=== PATIENT | female | born 1945 | race Caucasian/White ===

== ENCOUNTER 2023-11-03 14:29 | Outpatient (AMB) | payer MEDICARE, SELFPAY ==
--- NOTE | 2023-11-03 14:30 | A.OFFVIS_ITS ---
Intake Vital Signs 11/03/23 14:32 Height 5 ft 5 in Weight 129 lb 6 oz BMI 21.5 BP 120/68 Blood Pressure Location Rt brachial Position Sitting Respiration 16 Pulse 89 Pulse Source Pulse Oximeter Pulse Oximetry (%) 96 Oxygen Delivery Method Room Air Intake Visit Reasons: Muscle cramps Intake Note: Pt presents to the office for new pt evaluation for muscle cramps of the LE x 2 years. 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 It started about 2 years ago she started noticing leg cramps usually after brisk walking for 5-10 minutes. she can usually still walk as the cramps - she calls it charlies horse in her calves are mild. But is usually resolves after a brief rest and starts again when she walks .In the past 2 years she feels she has improved . It used to be after 5 min of brisk walking but she can walk 10 min without symptoms. she has mild back discomfort bit no radicular symptoms No numbness tingling or burning pain. No urinary incontinence. she was seen vascular who ruled out claudication. [facility] Medical History (Updated 11/03/23 @ 15:06 by Evelina Cummings MD) Muscle cramps Mitral regurgitation Pulmonary embolism Atrial fibrillation Vasovagal syncope Radiation effect Breast cancer Lymph node cancer Surgical History (Updated 11/03/23 @ 14:39 by Angelica Art CMA) H/O total hysterectomy H/O mastectomy History of appendectomy Family History (Updated 11/03/23 @ 14:39 by Angelica Art CMA) Father No problems noted. Mother No problems noted. Social History (Updated 11/03/23 @ 14:40 by Angelica Art CMA) Household Members: Spouse Housing: House Alcohol intake: never Patient Tobacco Use Status: Never used Tobacco Use of substances other than those prescribed or required for medical reasons: No Physical Exam Vital Signs: Last Vital Signs Pulse 89 11/03/23 14:32 Resp 16 11/03/23 14:32 BP 120/68 11/03/23 14:32 Pulse Ox 96 11/03/23 14:32 Oxygen Delivery Method Room Air 11/03/23 14:32 BMI result Body Mass Index 21.5 Const General: cooperative, healthy appearing and comfortable Nutritional Appearance: average body habitus Orientation/consciousness: patient oriented x3 Eyes Pupils: Equal, round and reactive pupils present Neuro General: patient oriented x3, gait normal, tone normal, moves all extremities and no focal motor deficits Cranial nerves: Yes Facial sensation intact/muscles of mastication intact, Yes Equal, round and reactive pupils present, Yes Bilaterally intact EOM present, Yes Nystagmus not present, Yes Normal facial strength present, Yes Midline tongue present and Yes Symmetric palate elevation present Cognition (Neuro): normal cognition Gait exam (Neuro): Normal gait present Motor exam (neuro): 5/5 motor strength present throughout and Normal motor muscle tone present throughout Deep tendon reflexes (DTR's): Right triceps reflex intensity grade: 2+, Left triceps reflex intensity grade: 2+, Rt Biceps (C5, C6): 2+, Left biceps reflex intensity grade: 2+, Right brachioradialis reflex intensity grade: 2+, Left brachioradialis reflex intensity grade: 2+, Right patellar reflex intensity grade: 2+ and Left patellar reflex intensity grade: 2+ Coordination: [id number] test normal Assessment & Plan Assessment & Plan (1) Muscle cramps: Comment: with exercise - unlikely to be due to spinals stenosis . Code(s): R25.2 - Cramp and spasm (2) Muscle cramps: Comment: with exercise - unlikely to be due to spinals stenosis . Code(s): R25.2 - Cramp and spasm Plan I suggested trialling on magnesium oxide or glycinate 250-500mg qhs If she does not improve or worsens will consider MRI LS spine and PT. Patient is very active and plays golf but does not stretch I suggested to add some stretching after her activity . Wear good fitting shoes during activity. Coding Level of Care Code New Pt Level 4 (34941) Diagnoses Muscle cramps R25.2
[2023-11-03 14:32] VITALS: BP 120/68; PULSE 89; RESP 16; O2SAT 96; BMI 21.5
== END 2023-11-03 15:15 | disposition home or self-care (01) ==
PROVIDERS: PCP Internal Medicine Endocrinology, Diabetes & Metabolism; Visit Provider Psychiatry & Neurology Neurology
DX: R25.2 Cramp and spasm (principal)
CPT/HCPCS: 99204

== ENCOUNTER → 2023-11-03 14:29 | Outpatient (BNVA) | payer MEDICARE, SELFPAY | PROVIDERS: PCP Internal Medicine Endocrinology, Diabetes & Metabolism; Visit Provider Psychiatry & Neurology Neurology | DX: R25.2 Cramp and spasm (principal) | CPT/HCPCS: 99202 ==

== ENCOUNTER 2024-05-05 15:03 | Outpatient (AMB) | payer MEDICARE, SELFPAY ==
--- NOTE | 2024-05-05 15:22 | MHC.OFFVIS ---
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 Cut down on Magnesium because is giving me diarrhea. Should I get a blood test to see my magnesium levels? Allergies No Known Allergies Allergy (Verified 05/05/24 15:28) HPI Comments Details: 78y/o female comes for follow up of leg cramps .she is feeling better with magnesium on and off.she had diarrhea with higher doses of magnesium and currently she is on 125 mg qd. Past visit history- It started about 2 years ago she started noticing leg cramps usually after brisk walking for 5-10 minutes. she can usually still walk as the cramps - she calls it charlies horse in her calves are mild. But is usually resolves after a brief rest and starts again when she walks .In the past 2 years she feels she has improved . It used to be after 5 min of brisk walking but she can walk 10 min without symptoms. she has mild back discomfort bit no radicular symptoms No numbness tingling or burning pain. No urinary incontinence. she was seen vascular who ruled out claudication. [facility] Medical History (Updated 11/03/23 @ 15:06 by Evelina Cummings MD) Muscle cramps Mitral regurgitation Pulmonary embolism Atrial fibrillation Vasovagal syncope Radiation effect Breast cancer Lymph node cancer Surgical History H/O total hysterectomy H/O mastectomy History of appendectomy Family History Father No problems noted. Mother No problems noted. Social History Household Members: Spouse Housing: House Alcohol intake: never Patient Tobacco Use Status: Never used Tobacco Physical Exam Vital Signs: Last Vital Signs Pulse 71 05/05/24 15:31 Resp 16 05/05/24 15:31 BP 120/60 05/05/24 15:31 Pulse Ox 98 05/05/24 15:31 Oxygen Delivery Method Room Air 05/05/24 15:31 BMI result Body Mass Index 21.3 Const General: cooperative, healthy appearing and comfortable Nutritional Appearance: average body habitus Orientation/consciousness: patient oriented x3 Eyes Pupils: Equal, round and reactive pupils present Neuro General: patient oriented x3, gait normal, tone normal, moves all extremities and no focal motor deficits Cranial nerves: Yes Facial sensation intact/muscles of mastication intact, Yes Equal, round and reactive pupils present, Yes Bilaterally intact EOM present, Yes Nystagmus not present, Yes Normal facial strength present, Yes Midline tongue present and Yes Symmetric palate elevation present Cognition (Neuro): normal cognition Gait exam (Neuro): Normal gait present Deep tendon reflexes (DTR's): Right triceps reflex intensity grade: 2+, Left triceps reflex intensity grade: 2+, Rt Biceps (C5, C6): 2+, Left biceps reflex intensity grade: 2+, Right brachioradialis reflex intensity grade: 2+, Left brachioradialis reflex intensity grade: 2+, Right patellar reflex intensity grade: 2+ and Left patellar reflex intensity grade: 2+ Coordination: [id number] test normal Assessment & Plan Assessment & Plan (1) Muscle cramps: Comment: with exercise - unlikely to be due to spinals stenosis . Code(s): R25.2 - Cramp and spasm Category: Medical (2) Muscle cramps: Comment: with exercise - unlikely to be due to spinals stenosis . Code(s): R25.2 - Cramp and spasm Category: Medical Plan I suggested she continue on magnesium 125- 250 qhs . Patient is very active and plays golf but does not stretch I suggested to add some stretching after her activity . Wear good fitting shoes during activity. Coding Level of Care Code Est Pt Level 3 (48208) Diagnoses Muscle cramps R25.2
[2024-05-05 15:31] VITALS: BP 120/60; PULSE 71; RESP 16; O2SAT 98; BMI 21.3
== END 2024-05-05 15:52 | disposition home or self-care (01) ==
PROVIDERS: PCP Internal Medicine Endocrinology, Diabetes & Metabolism; Visit Provider Psychiatry & Neurology Neurology
DX: R25.2 Cramp and spasm (principal)
CPT/HCPCS: 99213

== ENCOUNTER → 2024-05-05 15:03 | Outpatient (BNVA) | payer MEDICARE, SELFPAY | PROVIDERS: PCP Internal Medicine Endocrinology, Diabetes & Metabolism; Visit Provider Psychiatry & Neurology Neurology | DX: R25.2 Cramp and spasm (principal) | CPT/HCPCS: 99212 ==